=== PATIENT | female | born 1980 | race Caucasian/White ===

== ENCOUNTER 2022-06-18 21:43 | Emergency (ER) | payer OTHER, SELFPAY ==
[2022-06-18 22:10] VITALS: BP 152/94; PULSE 100; RESP 16; TEMP 36.8; O2SAT 95; BMI 29.3
--- NOTE | 2022-06-18 22:10 | CRLHL7_ITS ---
For Patients: As a result of the Cures Act, medical imaging exams and procedure reports are released immediately into your electronic medical record. You may view this report before your referring provider. If you have questions, please contact your health care provider. INDICATION: Trauma. TECHNIQUE: Pelvis 1 view. COMPARISON: None. FINDINGS/IMPRESSION: No acute fracture or dislocation. Joint spaces are maintained. IUD projects over the sacrum. Dictated by Kole Cuello MD @ 06/18/2022 11:51:26 PM (Electronically Signed)
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
--- NOTE | 2022-06-18 23:12 | ED.NURSE ---
Patient rounded on upon shift report. Patient denies any need at this time.
[2022-06-18] MEDS: IBUPROFEN 200 MG TABLET 400 MG PO (23:28)
== END 2022-06-19 00:23 | disposition home or self-care (01) ==
PROVIDERS: Emergency Provider Emergency Medicine
DX: S70.02XA Contusion of left hip, initial encounter (principal); S40.819A Abrasion of unspecified upper arm, initial encounter
CPT/HCPCS: 72170; 99283; 99284; A9270

== ENCOUNTER 2023-08-11 11:11 | Outpatient (CLI) | payer SELFPAY ==
--- OUTSIDE RECORDS SUMMARY | 2023-08-11 11:13 | XMS_ITS | Clinical Summary ---
Author Organization [employer] [facility] [employer] [facility] Address [place], [place] [address] Care Team Providers Care Pipe Coverer And Insulator Name Role Phone Sylvain Jha MD Primary Care Provider Allergies Active Allergy Reactions Criticality Noted Date Comments Atorvastatin Cough 03/23/2016 Medications Medication Sig Dispensed Refills Start Date End Date Status aspirin chewable 81 mg chewable tablet Take 1 tablet by mouth or nasogastric tube once daily. 0 07/20/2015 Active ibuprofen (ADVIL; MOTRIN) 200 mg tabletIndications:IU D (intrauterine device) in place Take 2-4 tablets by mouth every 6 hours if needed for Pain (mild pain). 100 tablet 08/31/2017 Active nitroglycerin (NITROSTAT) 0.4 mg sublingual tabletIndications:ST elevation myocardial infarction involving left anterior descending (LAD) coronary artery (HC) Place 1 Tablet (0.4 mg) under the tongue every 5 minutes if needed for Chest Pain (first choice for chest pain). 25 tablet. 1 06/04/2020 Active cholecalciferol (VITAMIN D3) 400 unit tablet 03/16/2020 Active clopidogreL (PLAVIX) 75 mg tabletIndications:ST elevation myocardial infarction involving left anterior descending (LAD) coronary artery (HC) Take 1 Tablet (75 mg) by mouth once daily. 30 tablet. 11 06/04/2020 Active rosuvastatin (CRESTOR) 40 mg tabletIndications:ST elevation myocardial infarction involving left anterior descending (LAD) coronary artery (HC),Hyperlipidemia, unspecified hyperlipidemia type Take 1 Tablet (40 mg) by mouth at bedtime. 90 Tablet 3 09/10/2020 Active levonorgestrel intrauterine device (Mirena) 20 mcg/24 hours (6 yrs) 52 mg IUD Inserted 2017 03 Device 09/16/2020 Active Insulin [place], Disposable, (Juanita Pen Needle) 32 gauge x Indications:Typ e 2 diabetes mellitus without complication, without long-term current use of insulin (HC) As directed. To use with insulin twice daily 100 Each 3 03/15/2021 Active cyclobenzaprine (FLEXERIL) 10 mg tabletIndications:Ac [place] midline low back pain with left-sided sciatica 1/2 to 1 tab at bedtime for muscle spasms 30 Tablet 3 03/31/2021 Active metFORMIN (GLUCOPHAGE) 1,000 mg tabletIndications:Ty pe 2 diabetes mellitus without complication, without long-term current use of insulin (HC) Take 1 Tablet (1,000 mg) by mouth in the morning and 1 Tablet (1,000 mg) in the evening. Take with meals. 180 tablet. 1 08/26/2021 Active glipiZIDE (GLUCOTROL) 5 mg tabletIndications:Ty pe 2 diabetes mellitus without complication, with long-term current use of insulin (HC) TAKE TWO TABLETS BY MOUTH IN THE MORNING AND 2 TABLETS IN THE EVENING. TAKE BEFORE MEALS. 120 Tablet 05/03/2022 Active Active Problems Problem Noted Date Diagnosed Date Pap smear for cervical cancer screening 03/06/19 22 Overview: 03/2021 NIL/HPV negative. Plan: Pap/HPV due 03/2026 Encounter for insertion of mirena IUD 09/03/2017 IUD (intrauterine device) in place 08/18/2017 Obesity with body mass index 30 or greater 04/14 [place] speaking patient 09/20/2015 Vitamin D deficiency 09/16/2015 Type 2 diabetes mellitus without complication Hyperlipidemia 08/12/2015 STEMI (ST elevation myocardial infarction) 07/19 Immunizations Name Administration Dates Next Due COVID-19 vaccine (Codenvy 30mcg/0.3mL) P F, MDV 06/26/2020,06/06/2020 HepA-HepB (Twinrix) 12/07/2020 Hepatitis A (Adult) 09/10/2013 Hepatitis B (Adult) 11/05/2013,09/10/2013 Influenza, IIV4 12/07/2020,10/30/2015 MMR 11/05/2013,09/10/2013 Pneumococcal Poly,23-Valent (Pneumovax) 09/11/19 14 Tdap 10/30/2015,09/10/2013 Varicella Vaccine 11/05/2013,09/10/2013 Family History Medical History Relation Name Comments Diabetes Father Heart Disease Father Heart Disease Mother Relation Name Status Comments Father Mother Social History Tobacco Use Types Packs/Day Years Used Date Smoking Tobacco: Never Smokeless Tobacco: Never Alcohol Use Standard Drinks/Week Comments No 0 (1 standard drink = 0.6 oz pur e alcohol) PHQ-2 Answer Date Recorded PHQ-2 TOTAL SCORE 0 07/08/2020 Social Connections Answer Date Recorded Frequency of Communication with Friends and Fami ly Not on file 03/06/2021 Financial Resource Strain Answer Date R ecorded Difficulty of Paying Living Expenses Not on file 03/06/2021 Difficulty of Paying Living Expenses Not on file 03/06/2021 Sex and Gender Information Value Date Recorded Sex Assigned at Not on file Gender Identity Not on file Sexual Orientation Not on file Obstetrics History Para Term AB IAB SAB Ectopic Multiple Livin g Live Births 3 3 3 0 0 0 0 0 0 3 3 Date Outcome GA Total Labor Labor/2nd/3rd Weight Sex Delivery Anes PTL Fern A1 A5 Name Cl in 08/13 Term 05/06 Term 07/31 Term Last Filed Vital Signs Vital Sign Reading Time Taken Comments Blood Pressure 110/62 03/31/2021 3:05 PM CARD HANGER Pulse 68 03/31/2021 3:05 PM CARD HANGER Temperature 37.3 ??C (99.2 ??F) 02/21/2020 12:[address] Respiratory Rate 16 08/14/2020 11:35 AM CDT Oxygen Saturation 98% 08/14/2020 11:35 AM CDT Inhaled Oxygen Concentration - - Weight 82.1 kg (181 lb) 03/31/2021 3:05 PM CARD HANGER Height 157.5 cm (5' 2) 03/31/2021 3:05 PM CARD HANGER Body Mass Index 33.11 03/31/2021 3:05 PM CARD HANGER Plan of Treatment Health Maintenance Due Date Last Done Comments HIV for age 15-65 10/27/1995 Hepatitis C screening for age 18-79 1998 Depression screening for age 12+ 07/08/2021 07/08/2020, 07/08/2020, 07/08/2020, Additional history exists BMI (ht and wt on same day) for age 18+ 03/31/2022 03/31/2021, 09/07/2020, 08/14/2020, Additional history exists COVID-19 vaccine series (3 - 2022- season) 2022 06/26/2020, 06/06/2020 Influenza for age 9-49 11/05/2023 12/07/2020, 2015 Tetanus booster 10/29/2025 10/30/2015, 09/10/2013 Pap test for age 21-65 09/23/2027 , 09/22/2022, 03/09/2021, Additional history exists Pneumococcal series for age 6-64 Aged Out 09/10/2013 No longer eligible based on patient's age to complete this topic Tdap Completed 10/30/2015, 09/10/2013 Procedures Procedure Name Priority Date/Time Associated Diagnosis Comments HPV THIN PREP Routine 09/22/2022 8:45 AM CDT from Last 3 Months or Most Recently Relevant to Health Maintenance Results * HPV HIGH RISK (09/22/2022 8:45 AM CDT) TYPE 16 Negative Negative 09/29/2022 11:16 AM CDT [facility] TYPE 18 Negative Negative 09/29/2022 11:16 AM CDT [facility] OTHER HIGH RISK TYPES Negative Negative 09/29/2022 11:16 AM CDT [facility] Other (Other) Client Collect / Unknown 09/22/2022 8:45 AM CDT 09/27/2022 5:48 AM CDT [facility] - 09/29/2022 11:16 AM CDT HPV types 16, 18, 31, 33, 35, 39, 45, 51, 52, 56, 58, 59, 66 and 68 DNA were undetectable or below the pre-set threshold. Methodology: MiaSolé Alfonzo 4800 HPV Test Navya Mis Shelley PA-C MICROBIOLOGY [facility] [address] [place] [address], from Last 3 Months or Most Recently Relevant to Health Maintenance Advance Directives * Full Code (Latest Code Status on File) Date Activated Date Inactivated Comments 08/31/2017 6:49 AM 08/31/2017 1:30 PM Question Answer Comments Code Status Discussion: Discussed * Full Code Date Activated Date Inactivated Comments 07/20/2015 12:35 AM 07/21/2015 5:03 PM Care Teams Pipe Coverer And Insulator Relationship Specialty Start Date End Date Sylvain Jha MD [address] [facility] [address] PCP - General Family Practice 09/07/20
[2023-08-11 14:44] LABS: Chlamydia DNA Amplified* NOT DETECTED (No Detected); GC DNA Amplified* NOT DETECTED (No Detected)
== END 2023-08-11 11:12 | disposition home or self-care (01) ==
PROVIDERS: Visit Provider Registered Nurse
DX: N89.8 Other specified noninflammatory disorders of vagina (principal); Z11.3 Encounter for screening for infections with a predominantly sexual mode of transmission
CPT/HCPCS: 87491; 87591

== ENCOUNTER 2023-10-18 08:10 | Outpatient (CLI) | payer OTHER, SELFPAY ==
--- OUTSIDE RECORDS SUMMARY | 2023-10-18 08:13 | XMS_ITS | Clinical Summary ---
Author Organization [employer] [facility] [employer] Address [place], [place] [address] Care Team Providers Care Curriculum Assistant Principal Name Role Phone Sylvain Jha MD Primary [...] Inserted 2017 03 Device 09/16/2020 Active Insulin [place], Disposable, (Juanita Pen Needle) 32 gauge x Indications:Typ e 2 diabetes mellitus without complication, without long-term current use of insulin (HC) As directed. To use with insulin twice daily 100 Each 3 03/15/2021 Active cyclobenzaprine (FLEXERIL) 10 mg tabletIndications:Ac [place] midline low back pain with left-sided sciatica [...] body mass index 30 or greater 04/14 [place] speaking patient 09/20/2015 Vitamin D deficiency 09/16/2015 Type 2 diabetes mellitus without complication Hyperlipidemia 08/12/2015 STEMI (ST elevation myocardial infarction) 07/19 Encounters Date Type Department Care Team Description 09/13/2023 Lab Requisition [address] [address] Tiki Berman, RN, RESERVATIONS SALES AGENT from Last 3 Months Immunizations Name Administration Dates Next Due COVID-19 vaccine (UNYQ 30mcg/0.3mL) P F, MDV 06/26/2020,06/06/2020 HepA-HepB (Twinrix) [...] Outcome GA Total Labor Labor/2nd/3rd Weight Sex Type Anes PTL Fern A1 A5 Name Clin 000 Term C-Sect ion 006 Term C-Sect ion 008 Term C-Sect ion Last Filed Vital Signs Vital Sign Reading Time Taken Comments Blood Pressure 110/62 03/31/2021 3:05 PM CREDIT RISK ANALYST Pulse 68 03/31/2021 3:05 PM CREDIT RISK ANALYST Temperature 37.3 ??C (99.2 ??F) 02/21/2020 12:[address] Respiratory Rate 16 08/14/2020 11:35 AM CDT Oxygen Saturation 98% 08/14/2020 11:35 AM CDT Inhaled Oxygen Concentration - - Weight 82.1 kg (181 lb) 03/31/2021 3:05 PM CREDIT RISK ANALYST Height 157.5 cm (5' 2) 03/31/2021 3:05 PM CREDIT RISK ANALYST Body Mass Index 33.11 03/31/2021 3:05 PM CREDIT RISK ANALYST Plan of Treatment Health Maintenance Due Date Last Done Comments HIV for age 15-65 10/27/1995 Hepatitis C screening for age 18-79 1998 Depression screening for age 12+ 07/08/2021 07/08/2020, 07/08/2020, 07/08/2020, Additional history exists BMI (ht and wt on same day) for age 18+ 03/31/2022 03/31/2021, 09/07/2020, 08/14/2020, Additional history exists COVID-19 vaccine series (2022- season) 2022 06/26/2020, 06/06/2020 Influenza for age 9-49 11/05/2023 12/07/2020, 2015 Tetanus booster 10/29/2025 10/30/2015, 09/10/2013 Pap test for age 21-65 09/23/2027 , 09/22/2022, 03/09/2021, Additional history exists Pneumococcal series for age 6-64 Aged Out 09/10/2013 No longer eligible based on patient's age to complete this topic Tdap Completed 10/30/2015, 09/10/2013 Procedures Procedure Name Priority Date/Time Associated Diagnosis Comments HEMOGLOBIN A1C Routine 09/13/2023 9:32 AM CDT HPV THIN PREP Routine 09/22/2022 8:45 AM CDT from Last 3 Months or Most Recently Relevant to Health Maintenance Results * (ABNORMAL) HEMOGLOBIN A1C MONITORING (POCT) (09/13/2023 9:32 AM CDT) HEMOGLOBIN A1C MONITORING (POCT) 10.3(H) <=6.4 % 09/14/2023 3:02 PM CDT [facility] Blood BLOOD SPECIMEN / Unknown 09/13/2023 9:32 AM CDT 09/14/2023 12:27 PM CDT Narrative [facility] - 09/14/2023 3:02 PM CDT ? (<=6.9%) ? Indicates good control ? (7.0% to 7.9%) ? Indicates fair control ? (>=8.0%) ? Indicates poor control ?? NOTE: ??These thresholds are guidelines and ?individual targets may vary. Falsely low levels may be seen with: Recent Transfusion, Recent Significant Blood Loss, Hemolytic Diseases, or Falsely elevated levels may be seen with: Untreated Anemias, Splenectomy ? Tiki Berman RN, RESERVATIONS SALES AGENT CHEMISTRY Performing Organization Address City/[facility]/ZIP Co de Phone Number [facility] [address] [place] [address], * HPV HIGH RISK (09/22/2022 8:45 AM CDT) TYPE 16 Negative Negative 09/29/2022 11:16 AM CDT [facility] TYPE 18 Negative Negative 09/29/2022 11:16 AM CDT [facility] OTHER HIGH RISK TYPES Negative Negative 09/29/2022 11:16 AM CDT [facility] Other (Other) Client Collect / Unknown 09/22/2022 8:45 AM CDT 09/27/2022 5:[address] [facility] - 09/29/2022 11:16 AM CDT HPV types 16, 18, 31, 33, 35, 39, 45, 51, 52, 56, 58, 59, 66 and 68 DNA were undetectable or below the pre-set threshold. Methodology: Darwin Alfonzo 4800 HPV Test June Daphney JUAREZ MICROBIOLOGY Performing Organization Address City/[facility]/ZIP Co de Phone Number [facility] [address] [place] [address], from Last 3 Months or Most Recently Relevant to Health Maintenance Advance Directives * Full Code (Latest Code Status on File) Date Activated Date Inactivated Comments 08/31/2017 6:49 AM 08/31/2017 1:30 PM Question Answer Comments Code Status Discussion: Discussed * Full Code Date Activated Date Inactivated Comments 07/20/2015 12:35 AM 07/21/2015 5:03 PM Care Teams Curriculum Assistant Principal Relationship Specialty Start Date End Date Sylvain Jha MD [address] [facility] [place] [address] PCP - General Family Practice 09/07/20
--- NOTE | 2023-10-18 08:15 | CRLHL7_ITS ---
For Patients: As a result of the Century Cures Act, medical imaging exams and procedure reports are released immediately into your electronic medical record. You may view this report before your referring provider. If you have questions, please contact your health care provider. BILATERAL SCREENING MAMMOGRAM WITH COMPUTER-AIDED DETECTION AND TOMOSYNTHESIS TECHNIQUE: CC and MLO views were obtained. These mammographic images have been obtained using full-field digital technique. These mammographic images were interpreted with the benefit of computer-aided detection. Breast Tomosynthesis was used in this interpretation. COMPARISON FILM: Baseline. FINDINGS: There are scattered areas of fibroglandular density IMPRESSION: There is no radiographic evidence for malignancy. ASSESSMENT: BI-RADS Category 1: Negative RECOMMENDATION: Routine screening mammogram in 1 year. A lay language report of this examination will be provided to the patient. Juan R Cavazos M.D. Diagnostic Radiologist [email or web address] WILLIAM/[email or web address] Transcribed: 6:03 p.rashi correia/Dictated by: Juan R Cavazos MD @ 10/19/2023 10:12:00 AM (Electronically Signed)
== END 2023-10-18 08:11 | disposition home or self-care (01) ==
LOC: MAMMO 08:11
PROVIDERS: Visit Provider Registered Nurse
DX: Z12.31 Encounter for screening mammogram for malignant neoplasm of breast (principal)
CPT/HCPCS: 77063; 77067; T1013

== ENCOUNTER 2025-01-14 11:23 | Outpatient (CLI) | payer OTHER, SELFPAY ==
--- NOTE | 2025-01-14 11:30 | CRLHL7_ITS ---
For Patients: As a result of the Century Cures Act, medical imaging exams and procedure reports are released immediately into your electronic medical record. You may view this report before your referring provider. If you have questions, please contact your health care provider. INDICATION: BILATERAL SCREENING MAMMOGRAM, ASYMPTOMATIC 44 Y/O FEMALE COMPARISON: 10/18/2023 TECHNIQUE: Digital mammogram in CC and MLO projections including computer-aided detection (CAD) and tomosynthesis. BREAST COMPOSITION: The breasts are almost entirely fatty. FINDINGS: No suspicious findings. ASSESSMENT: BI-RADS 1 Negative RECOMMENDATION: Annual screening mammogram. A lay language report of this examination will be provided to the patient. Dictated by: Juan R Cavazos MD @ 01/14/2025 12:54:08 (Electronically Signed)
== END 2025-01-14 11:24 | disposition home or self-care (01) ==
LOC: MAMMO 11:24
PROVIDERS: Visit Provider Registered Nurse
DX: Z12.31 Encounter for screening mammogram for malignant neoplasm of breast (principal)
CPT/HCPCS: 77063; 77067; T1013